=== PATIENT | male | born 1995 | race Caucasian/White ===

== ENCOUNTER 2016-04-23 23:28 | Emergency (ER) | payer MEDICAID, OTHER ==
[~2016-04-23] VITALS: Ht 182.9 cm; Wt 87.5 kg
[2016-04-23 23:38] VITALS: BP 121/64
== END 2016-04-24 00:55 | disposition home or self-care (01) ==
LOC: ER 23:28
DX: J11.1 Influenza due to unidentified influenza virus with other respiratory manifestations (principal)
CPT/HCPCS: 99281; A4606; Z7610; Z7502